=== PATIENT | male | born 1990 | race African-American/Black ===

== ENCOUNTER 2021-12-08 11:16 | Emergency (ER) | payer OTHER ==
[~2021-12-08] VITALS: Ht 182.9 cm; Wt 113.4 kg
[2021-12-08 11:20] VITALS: BP 130/81
[2021-12-08] MEDS ORDERED: NAPROSYN500 MG PO (11:39)
[2021-12-08] MEDS ORDERED: WART REMOVER1 EAC1 TOP (11:39)
== END 2021-12-08 11:46 | disposition home or self-care (01) ==
LOC: ER 11:16
DX: B07.0 Plantar wart (principal)